=== PATIENT | male | born 1980 | race American Indian/Alaskan Native ===

== ENCOUNTER 2017-02-22 19:50 | Emergency (ER) | payer OTHER ==
[2017-02-22 20:20] VITALS: BP 133/79
[2017-02-22] MEDS ORDERED: MOTRIN PO ONE (22:25)
[2017-02-22] MEDS ORDERED: BOOSTRIX IM ONE (22:39)
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
== END 2017-02-23 02:10 | disposition home or self-care (01) ==
LOC: ED 19:50
DX: S52.124A Nondisplaced fracture of head of right radius, initial encounter for closed fracture (principal); S13.4XXA Sprain of ligaments of cervical spine, initial encounter; S39.012A Strain of muscle, fascia and tendon of lower back, initial encounter; R51 Headache; V28.4XXA Motorcycle driver injured in noncollision transport accident in traffic accident, initial encounter; Y93.89 Activity, other specified; Y99.8 Other external cause status; Y92.482 Bike path as the place of occurrence of the external cause
CPT/HCPCS: 70450; 72125; 72128; 72131; 90471; 90715